=== PATIENT | male | born 1995 | race Caucasian/White ===

== ENCOUNTER 2017-06-14 00:51 | Emergency (ER) | payer OTHER ==
--- NOTE | 2017-06-14 02:04 | ED ---
Laceration/Wound HPI - HPI Summary HPI Summary: 22 male presents to ED with complaints of right ring finger laceration that occurred just LAST PICKER after cutting it on broken beer bottle glass. Patient states bleeding is controlled. No foreign body. Normal ROM and sensation. States he believes tetanus was updated ~ 1 year ago when he had a different finger laceration. No anticoagulants. No medications. Minimal pain. No PMHx. - History of Current Complaint Stated Complaint: FINGER LAC Time Seen by Provider: 06/14/17 00:56 Hx Obtained From: Patient Mechanism of Injury: Sharp/Blunt Trauma Onset/Duration: Sudden Onset, Lasting Hours, Still Present Aggravating: Movement Alleviating: Compression Timing: Constant Onset Severity: Mild Current Severity: Mild Pain Intensity: 2 Pain Scale Used: 0-10 Numeric Related Hx: Dominant Hand (Right) - Allergy/Home Medications Allergies/Adverse Reactions: Allergies Allergy/AdvReac Type Severity Reaction Status Date / Time Sulfa Antibiotics Allergy Unknown Verified 06/14/17 00:55 Reaction Details PMH/Surg Hx/FS Hx/Imm Hx Endocrine/Hematology History: Denies: Hx Anticoagulant Therapy, Hx Diabetes Cardiovascular History: Denies: Hx Hypertension - Surgical History Surgery Procedure, Year, and Place: n/a - Immunization History Immunizations Up to Date: Yes Infectious Disease History: No Infectious Disease History: Denies: Traveled Outside the [place] in Last 30 Days - Family History Known Family History: Positive: None - Social History Alcohol Use: Weekly Substance Use Type: Reports: Marijuana Smoking Status (MU): Never Smoked Tobacco Review of Systems Constitutional: Negative Cardiovascular: Negative Respiratory: Negative Musculoskeletal: Negative Positive: Other - laceration Neurological: Negative All Other Systems Reviewed And Are Negative: Yes Physical Exam Triage Information Reviewed: Yes Vital Signs On Initial Exam: Initial Vitals Temp Pulse Resp BP Pulse Ox 98.6 F 80 14 152/95 99 06/14/17 00:54 06/14/17 00:54 06/14/17 00:54 06/14/17 00:54 06/14/17 00:54 Vital Signs Reviewed: Yes Appearance: Positive: Well-Appearing, No Pain Distress, Well-Nourished Skin: Positive: Warm, Skin Color Reflects Adequate Perfusion, Dry, Other - 1cm linear superficial laceration of right ring finer lateral/dorsal distal DIP area , bleeding controlled no visualized FB, no tendon or adipose involvement. normal skin exam otherwise. Negative: Cold, Cyanosis @, Pale, Erythema @ Head/Face: Positive: Normal Head/Face Inspection Eyes: Positive: Conjunctiva Clear ENT: Positive: Hearing grossly normal Neck: Positive: Supple, Nontender Respiratory/Lung Sounds: Positive: Clear to Auscultation, Breath Sounds Present. Negative: Rales, Rhonchi, Wheezes Cardiovascular: Positive: Normal, RRR, Pulses are Symmetrical in both Upper and Lower Extremities - 2+ radial b/l. Negative: Murmur, Rub Musculoskeletal: Positive: Normal, Strength/ROM Intact, Other - normal ROM and sensation of right injured finger. Negative: Limited @, Interruption @, Abnormal @, Pain @, Edema Left, Edema Right Neurological: Positive: Normal, Sensory/Motor Intact, Alert, Oriented to Person Place, Time, [place] Bundle Intact Distally - [place] Coma Scale Coma Scale Total: 15 Procedures - Laceration/Wound Repair 1 Location: upper extremity - right ring finger Description: Irregular - linear with some jagged area Anesthesia: Local, 1.0%, [place] Length, Depth and Shape: 1.5cm linear/jagged laceraton, right ring finger Betadine Prep?: Yes Irrigated w/ Saline (ccs): 300 - thorougly irrigated and soaked Laceration/Wound Explored: clean Closure: Single Layer Suture Type: Prolene - 4-0 Number of Sutures: 3 Sterile Dressing Applied?: Yes - telfa, keflex, coban Diagnostics - Vital Signs Vital Signs Temp Pulse Resp BP Pulse Ox 06/14/17 00:54 98.6 F 80 14 152/95 99 - Laboratory Lab Statement: Any lab studies that have been ordered have been reviewed, and results considered in the medical decision making process. - Radiology right ring finger Xray Interpretation: No Acute Changes Radiology Interpretation Completed By: ED Physician - Dr Andre and myself Laceration Repair Course/Dx - Course Course Of Treatment: xray obtained to rule out FB and fx. negative. laceration was sutured without complication. steril procedure used. patient tolerated procedure well. tetenus UTD within last year per patient. no pain at this time. keep clean and dry. remove in 7 days. normal PE exam, sensation/ROM otherwise. Aware of worsening signs/symptoms such as infection. triple antibitic do not get wet for 24 hours and refrain from submerging in water. Patient agrees and understands plan. no other concerns at this time. Follow up. - Differential Dx Differental Diagnoses: Abrasion, Avulsion, Laceration - Clinical Impression Provider Diagnoses: Laceration of finger Discharge - Discharge Plan Condition: Stable Disposition: HOME Patient Education Materials: Care For Your Stitches (ED), Laceration (ED) Additional Instructions: Avoid getting finger wet for 24 hours. After gently rinse and you may get wet, do not submerge in water. Keep clean and dry. Apply triple antibiotic ointment after 24 hours. You may redress, if desired. Any signs of infection please seek medical attention as discussed. Follow up with PCP. Have stitches removed in 7 days.
[2017-06-14 02:11] VITALS: BP 120/74
--- NOTE | 2017-06-14 07:39 | RAD ---
HISTORY: Right fourth finger laceration, rule out foreign body COMPARISONS: None VIEWS: 3, Frontal, lateral, and oblique views of the fourth digit of the right hand FINDINGS: BONE DENSITY: Normal. BONES: There is no displaced fracture. JOINTS: There is no arthropathy. ALIGNMENT: There is no dislocation. SOFT TISSUES: Unremarkable. OTHER FINDINGS: There is no radiopaque foreign body. IMPRESSION: NO ACUTE OSSEOUS INJURY. IF SYMPTOMS PERSIST, RECOMMEND REPEAT IMAGING.
== END 2017-06-14 02:11 | disposition home or self-care (01) ==
LOC: ED 00:51
DX: S61.214A Laceration without foreign body of right ring finger without damage to nail, initial encounter (principal); W25.XXXA Contact with sharp glass, initial encounter; Y92.9 Unspecified place or not applicable; Z88.2 Allergy status to sulfonamides
CPT/HCPCS: 12001; 73140; 99282